=== PATIENT | female | born 1955 | race Two or more races ===

== ENCOUNTER 2024-08-17 16:26 | Emergency (ER) | payer MEDICARE, OTHER ==
[~2024-08-17] VITALS: Ht 167.6 cm; Wt 72.6 kg
[2024-08-17] MEDS: IV NS 0.9% 1,000 ML BAG IV ONE ×2 (17:00→19:20)
[2024-08-17 17:03] LABS: BASOPHILS # (AUTO) 0.1 K/uL (0.0-0.2); BASOPHILS % (AUTO) 0.9 % (0.0-2.0); EOSINOPHILS % (AUTO) 0.3 % (0.0-6.0); HEMATOCRIT 36 % (33-45); HEMOGLOBIN 11.9 g/dL (11.5-14.8); LYMPHOCYTES # (AUTO) 4.2 K/uL (0.8-4.8); LYMPHOCYTES % (AUTO) 32.4 % (20.0-44.0); MEAN CORPUSCULAR HEMOGLOBIN 30 PG (26.0-33.0); MEAN CORPUSCULAR HGB CONC 33 g/dl (31.0-36.0); MEAN CORPUSCULAR VOLUME 90 fL (82-100); MONOCYTES # (AUTO) 0.7 K/uL (0.1-1.30); MONOCYTES % (AUTO) 5.7 % (2.0-12.0); NEUTROPHILS # (AUTO) 7.9 K/uL (1.8-8.9); NEUTROPHILS % (AUTO) 60.7 % (43.0-81.0); PLATELET COUNT (AUTO) 397 K/uL (150-450); RED BLOOD CELL COUNT(AUTO) 3.95 MIL/uL (4.0-5.2); RED CELL DISTRIBUTION WIDTH 13.9 % (11.5-15.0)
[2024-08-17 17:11] LABS: CARBON DIOXIDE 25 mmol/L (21-32); CHLORIDE 99 mmol/L (98-107); GLUCOSE 270 mg/dL (74-106); SODIUM SERUM 135 mmol/L (136-145); UREA NITROGEN, BLOOD 23 mg/dL (7-18)
[2024-08-17] MEDS ORDERED: ONDANSETRON HCL/PF 4 MG/2 ML VIAL ONE ×2 (17:19→19:10)
[2024-08-17] MEDS: ONDANSETRON HCL/PF - ER 4 MG/2 ML VIAL IV ONE (17:27)
[2024-08-17] MEDS ORDERED: MORPHINE SULFATE INJ 4 MG/ML DISP.SYRIN ONE (19:10)
[2024-08-17] MEDS: ONDANSETRON HCL/PF 4 MG/2 ML VIAL IVP ONE (19:15)
[2024-08-17 19:20] LABS: ALBUMIN 3.9 g/dL (3.4-5.0); BILIRUBIN,DIRECT 0.4 mg/dL (0.0-0.2); BILIRUBIN,TOTAL 1.9 mg/dL (0.2-1.0); TOTAL PROTEIN, SERUM 7.4 g/dL (6.4-8.2)
[2024-08-17] MEDS: MORPHINE SULFATE INJ 2 MG/ML DISP.SYRIN IV ONE (19:20)
[2024-08-17] MEDS ORDERED: PRUC2TAB PO (19:23)
[2024-08-17] MEDS ORDERED: FOLI0.4T6 PO (19:23)
[2024-08-17] MEDS ORDERED: DICY20TA11 PO (19:23)
[2024-08-17] MEDS ORDERED: CHOL200059 PO (19:23)
[2024-08-17] MEDS ORDERED: ABAT250V2 IV (19:23)
[2024-08-17] MEDS ORDERED: ERGO500093 PO (19:23)
[2024-08-17] MEDS ORDERED: GABA300C PO (19:23)
[2024-08-17] MEDS ORDERED: LEVO50TA8 PO (19:23)
[2024-08-17] MEDS ORDERED: CLOP75TA15 PO (19:23)
[2024-08-17] MEDS ORDERED: AMYL1CAP58 PO (19:23)
[2024-08-17] MEDS ORDERED: METF-442 PO (19:23)
[2024-08-17] MEDS ORDERED: SENN-146 PO (19:23)
[2024-08-17] MEDS ORDERED: METO10TA3 PO (19:23)
[2024-08-17] MEDS ORDERED: [UNRECOGNIZED DRUG - CODE] SQ (19:23)
[2024-08-17] MEDS ORDERED: FURO20TA4 PO (19:23)
[2024-08-17] MEDS ORDERED: ASPI-1169 PO (19:23)
[2024-08-17] MEDS ORDERED: LINA290C PO (19:23)
[2024-08-17] MEDS ORDERED: MAGN400T26 PO (19:23)
[2024-08-17] MEDS ORDERED: ATOR80TA PO (19:23)
[2024-08-17] MEDS ORDERED: ESOM40CA PO (19:23)
[2024-08-17] MEDS ORDERED: GLIP10TA11 PO (19:23)
[2024-08-17] MEDS ORDERED: CELE200C PO (19:23)
[2024-08-17 19:42] LABS: APPEARANCE,URINE CLEAR (CLEAR); BILIRUBIN,URINE NEGATIVE (NEGATIVE); BLOOD, URINE NEGATIVE Ery/uL (NEGATIVE); COLOR,URINE YELLOW (YELLOW); KETONES,URINE TRACE mg/dL (NEGATIVE); LEUKOCYTE ESTERASE ,URINE TRACE (NEGATIVE); NITRITE, URINE NEGATIVE (NEGATIVE); PH,URINE 5.5 (5.0-8.0); PROTEIN,URINE NEGATIVE (NEGATIVE); UGLUCOSE 1+ mg/dL (NEGATIVE); UROBILINOGEN,URINE 0.2 EU/dL (0.2)
[2024-08-17 19:51] LABS: ADD URINE CULTURE NO; BACTERIA,URINE RARE /HPF (None Seen); MUCUS,URINE Few /LPF (None Seen); RBC,URINE 0-2 /HPF (0-2)
[2024-08-17] MEDS ORDERED: CEPH-570 PO (21:20)
[2024-08-17 21:37] VITALS: BP 122/70; TEMP 98.8; O2SAT 100
== END 2024-08-17 21:38 | disposition home or self-care (01) ==
LOC: ER 16:30
DX: E86.0 Dehydration (principal); R53.1 Weakness; R10.84 Generalized abdominal pain; I10 Essential (primary) hypertension; E11.9 Type 2 diabetes mellitus without complications; Z79.02 Long term (current) use of antithrombotics/antiplatelets; Z79.890 Hormone replacement therapy; Z90.49 Acquired absence of other specified parts of digestive tract; Z95.5 Presence of coronary angioplasty implant and graft
CPT/HCPCS: 99285; 70450; 96374; 96361; 71045; 96375; 93005; 96376; 74176; 85025; 80048; 83690; 80076; 81001; 36415; 84484 ×2; J2270; J2405 ×3; J7030 ×2